=== PATIENT | male | born 1935 | race Caucasian/White ===

== ENCOUNTER 2019-11-08 09:51 | Day surgery (SDC) | payer MEDICARE, OTHER ==
[2019-11-08] MEDS ORDERED: Midazolam 1 MG/ML 2 ML SDV IV ONE (09:52)
[2019-11-08] MEDS ORDERED: fentaNYL 100 MCG/2 ML SDV IV ONE (09:52)
[2019-11-08] MEDS ORDERED: Lactated Ringers 1,000 ML IV PRN (10:30)
[2019-11-08] MEDS ORDERED: Sodium Chloride 0.9% 10 ML Syringe FLUSH PRN (10:30)
[2019-11-08] MEDS ORDERED: acetaZOLAMIDE 500 MG Cap.ER PO ONE (13:00)
--- NOTE | 2019-11-09 13:53 | OR ---
DATE OF OPERATION: 11/08/2019 SURGEON: Nicolasa Mckeon MD PREOPERATIVE DIAGNOSES: 1. Visually significant cataract, right eye. 2. Floppy iris syndrome, right eye. POSTOPERATIVE DIAGNOSES: 1. Visually significant cataract, right eye. 2. Floppy iris syndrome, right eye. PROCEDURES PERFORMED: Complex phacoemulsification with intraocular lens placement, right eye, CPT 96063. ASSISTANTS: None. ANESTHESIA: Local with sedation. COMPLICATIONS: None. BLOOD LOSS: None. IMPLANTS: Jeronimo ACU0T0, 19.5 diopter lens, serial number [id number] implanted. CDE: 2.70. DESCRIPTION OF PROCEDURE: After risks and benefits were reviewed with the patient, consent was obtained in the preoperative area, and the operative eye was marked with a surgical pen. In the preoperative area, a pledget was used to dilate the pupil consisting of a mixture of phenylephrine 10%, cyclopentolate 2%, moxifloxacin 0.5%, and bupivacaine 0.75%. The patient was taken to the operating room, where a time-out was performed, and the patient was placed under monitored anesthesia care. Topical tetracaine was used for anesthesia. The operative eye was prepped and draped for ophthalmic surgery, and the microscope was brought into position and focused. A paracentesis incision was made, followed by injection of preservative-free 1% lidocaine into the anterior chamber, followed by injection of Viscoat into the anterior chamber. Due to floppy iris syndrome and poor dilation, a Malyugin ring was inserted to retract the iris to 7.0 mm. A microkeratome blade was used to make a corneal limbal incision temporally. A cystotome was used to make the beginning of the capsulorrhexis, which was carried around 360 degrees in a curvilinear fashion using Utrata forceps. A Herbert cannula with BSS was used to hydrodissect and hydrodelineate the nucleus. The nucleus was removed in a divide and conquer manner using phacoemulsification. Irrigation and aspiration were used to remove the remaining cortical material. Provisc was used to inflate the capsular bag, and a pre-loaded Jeronimo ACU0T0, 19.5 diopter lens, serial number [id number] was injected into the capsular bag. A Sinskey hook was used to position and center the lens. The Malyugin ring was then removed from the anterior chamber and discarded. Next, irrigation and aspiration was used to remove any remaining viscoelastic and cortical material from the anterior chamber. BSS on a cannula was used to inflate the anterior chamber and hydrate the wound. The wound was checked and found to be watertight. 1 mg of Moxifloxacin was injected into the anterior chamber. Drapes were removed and the eye was cleaned. A drop of brimonidine 0.15% and a drop of TobraDex was placed. The eye was shielded, and the patient was taken to the recovery room in stable condition. CC: Lake Peterson OD CC: KAYLA Guzman CC Nicolasa Mckeon MD /[id number] ELIZABETH/HILDA
== END 2019-11-08 12:38 | disposition home or self-care (01) ==
LOC: FB.SDS 09:51
PROVIDERS: ATTEND Ophthalmology
DX: H25.813 Combined forms of age-related cataract, bilateral (principal); H21.81 Floppy iris syndrome; I10 Essential (primary) hypertension; E78.49 Other hyperlipidemia; Z87.891 Personal history of nicotine dependence; H35.3131 Nonexudative age-related macular degeneration, bilateral, early dry stage; H02.831 Dermatochalasis of right upper eyelid; H02.834 Dermatochalasis of left upper eyelid; H52.13 Myopia, bilateral; H52.223 Regular astigmatism, bilateral; Z98.890 Other specified postprocedural states; Z79.899 Other long term (current) drug therapy
CPT/HCPCS: 00142-QZ; A9270-GY; J2250; J3010; V2632

== ENCOUNTER 2019-11-22 10:11 | Day surgery (SDC) | payer MEDICARE, OTHER ==
[2019-11-22] MEDS ORDERED: Midazolam 1 MG/ML 2 ML SDV IV ONE (10:12)
[2019-11-22] MEDS ORDERED: fentaNYL 100 MCG/2 ML SDV IV ONE (10:12)
[2019-11-22] MEDS ORDERED: Lactated Ringers 1,000 ML IV PRN (10:30)
[2019-11-22] MEDS ORDERED: acetaZOLAMIDE 500 MG Cap.ER PO ONE (10:30)
[2019-11-22] MEDS ORDERED: Sodium Chloride 0.9% 10 ML Syringe FLUSH PRN (10:30)
--- NOTE | 2019-11-23 10:05 | OR ---
DATE OF OPERATION: 11/22/2019 SURGEON: Nicolasa Mckeon MD PREOPERATIVE DIAGNOSES: 1. Visually significant cataract, left eye. 2. Floppy iris syndrome, left eye. POSTOPERATIVE DIAGNOSIS: Visually significant cataract, left eye. PROCEDURES PERFORMED: Complex phacoemulsification with intraocular lens placement, left eye, CPT 20690. ASSISTANTS: None. ANESTHESIA: Local with sedation. COMPLICATIONS: None. BLOOD LOSS: None. IMPLANTS: An Jeronimo ACU0T0, 19.0 diopter lens, serial number [id number] implanted. CDE: 2.43 DESCRIPTION OF PROCEDURE: After risks and benefits were reviewed with the patient, consent was obtained in the preoperative area, and the operative eye was marked with a surgical pen. In the preoperative area, a pledget was used to dilate the pupil consisting of a mixture of phenylephrine 10%, cyclopentolate 2%, moxifloxacin 0.5%, and bupivacaine 0.75%. The patient was taken to the operating room, where a time-out was performed, and the patient was placed under monitored anesthesia care. Topical tetracaine was used for anesthesia. The operative eye was prepped and draped for ophthalmic surgery, and the microscope was brought into position and focused. A paracentesis incision was made, followed by injection of preservative-free 1% lidocaine into the anterior chamber, followed by injection of Viscoat into the anterior chamber. Due to floppy iris syndrome, a Malyugin ring was used to dilate the pupil to 7.0 mm. A microkeratome blade was used to make a corneal limbal incision temporally. A cystotome was used to make the beginning of the capsulorrhexis, which was carried around 360 degrees in a curvilinear fashion using Utrata forceps. A Herbert cannula with BSS was used to hydrodissect and hydrodelineate the nucleus. The nucleus was removed in a divide and conquer manner using phacoemulsification. Irrigation and aspiration were used to remove the remaining cortical material. Provisc was used to inflate the capsular bag, and a pre-loaded Jeronimo ACU0T0, 19.0 diopter lens, serial number [id number] was injected into the capsular bag. A Sinskey hook was used to position and center the lens. The Malyugin ring was then removed from the anterior chamber and discarded. Next, irrigation and aspiration was used to remove any remaining viscoelastic and cortical material from the anterior chamber. BSS on a cannula was used to inflate the anterior chamber and hydrate the wound. The wound was checked and found to be watertight. 1 mg of Moxifloxacin was injected into the anterior chamber. Drapes were removed and the eye was cleaned. A drop of brimonidine 0.15% and a drop of TobraDex was placed. The eye was shielded, and the patient was taken to the recovery room in stable condition. CC: LESA WITT OD CC: BELLA PEREZ PA-C [address] [place] [id number] /[id number] ELIZABETH/HILDA
== END 2019-11-22 12:25 | disposition home or self-care (01) ==
LOC: FB.SDS 10:11
PROVIDERS: ATTEND Ophthalmology
DX: H25.813 Combined forms of age-related cataract, bilateral (principal); H35.3131 Nonexudative age-related macular degeneration, bilateral, early dry stage; H02.831 Dermatochalasis of right upper eyelid; H02.834 Dermatochalasis of left upper eyelid; H52.13 Myopia, bilateral; H52.223 Regular astigmatism, bilateral; H21.81 Floppy iris syndrome; I10 Essential (primary) hypertension; E78.2 Mixed hyperlipidemia; Z79.899 Other long term (current) drug therapy; Z87.891 Personal history of nicotine dependence
CPT/HCPCS: 00142; 66982; A9270; J2250; J3010; V2632